=== PATIENT | male | born 2000 | race American Indian/Alaskan Native ===

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

== ENCOUNTER 2021-05-30 02:14 | Inpatient (IN) | payer MEDICAID, SELFPAY ==
[2021-05-30 04:04] LABS: Basophils % (Auto) 0.1 % (0.0-1.8); Hematocrit 43.1 % (35.5-45.6); Hemoglobin 14.9 gm/dl (11.8-15.2); Lymphocytes # (Auto) 0.6 K/mm3 (1.2-5.4); Lymphocytes % (Auto) 12.9 % (13.4-35.0); Mean Corpuscular HGB Conc 35 % (32-34); Mean Corpuscular Volume 89 fl (84-94); Monocytes # (Auto) 0.4 K/mm3 (0.0-0.8); Monocytes % (Auto) 8.7 % (0.0-7.3); Platelet Count 174 K/mm3 (140-440); Red Blood Count 4.83 M/mm3 (3.65-5.03); Red Cell Distribution Width 12.9 % (13.2-15.2)
[2021-05-30 04:29] LABS: Alanine Aminotransferase 13 units/L (7-56); Albumin 4.1 g/dL (3.9-5); BUN/Creatinine Ratio 15; Blood Urea Nitrogen 17 mg/dL (9-20); Hemolysis Index 8
[2021-05-30 06:42] LABS: Bacteria,Urine 1+ /HPF (Negative); Bilirubin,Urine NEG (Negative); Blood,Urine NEG (Negative); Color,Urine Yellow (Yellow); Mucus,Urine FEW /HPF; Urobilinogen,Urine < 2.0 mg/dL (<2.0)
[2021-05-30] MEDS ORDERED: ACETAMINOPHEN 500 MG TAB PO ONE (09:21)
[2021-05-30] MEDS ORDERED: KETOROLAC 30 MG/1 ML INJ IV ONE (09:21)
[2021-05-30] MEDS ORDERED: SODIUM CHLORIDE 0.9% 1000 ML 1,000 ML IV ONE (09:21)
--- NOTE | 2021-05-30 09:40 | Emergency Department Report ---
ED N/V/D HPI - General Chief complaint: Abdominal Pain Stated complaint: VOMITING/HEADACHES X4DAYS/SORE THROAT/NAUSEA Time Seen by Provider: 05/30/21 09:12 Source: patient Mode of arrival: Ambulatory Limitations: No Limitations - History of Present Illness Initial comments: 20-year-old male, no past medical history, presents to ED with flu-like illness x1 week. Patient is unvaccinated against COVID-19. Patient reports 1 week history of fever, cough, vomiting, abdominal pain, muscle aches. He denies any loss of smell or taste. Patient seen and evaluated in the acute waiting room secondary to no ED beds available due to COVID-19 pandemic and nursing shortage. MD complaint: nausea, vomiting, abdominal pain -: week(s) (1) Associated Abdominal Pain: Yes Location: diffuse Severity: moderate Quality: cramping Consistency: constant Improves with: none Worsens with: none, eating Associated Symptoms: myalgias, cough, fever/chills, nausea/vomiting, shortness of breath, weakness - Related Data Home Medications Medication Instructions Recorded Confirmed Last Taken No Known Home Medications [No 06/22/17 06/22/17 Unknown Reported Home Medications] Allergies Allergy/AdvReac Type Severity Reaction Status Date / Time No Known Allergies Allergy Verified 06/27/17 06:34 ED Review of Systems ROS: Stated complaint: VOMITING/HEADACHES X4DAYS/SORE THROAT/NAUSEA Other details as noted in HPI Comment: All other systems reviewed and negative Constitutional: chills, fever ENT: other (Denies loss of smell or taste) Respiratory: cough, shortness of breath Gastrointestinal: abdominal pain, nausea, vomiting Musculoskeletal: myalgia Neurological: headache ED Past Medical Hx - Past Medical History Previous Medical History?: No Hx HIV: No - Surgical History Past Surgical History?: Yes Additional Surgical History: left ear surgery - Social History Smoking Status: Never Smoker - Medications Home Medications: Home Medications Medication Instructions Recorded Confirmed Last Taken Type No Known Home Medications [No 06/22/17 06/22/17 Unknown History Reported Home Medications] ED Physical Exam - General Limitations: No Limitations General appearance: alert, in no apparent distress - Head Head exam: Present: atraumatic, normocephalic - Eye Eye exam: Present: normal appearance, EOMI - ENT ENT exam: Present: mucous membranes moist - Neck Neck exam: Present: normal inspection - Respiratory Respiratory exam: Present: normal lung sounds bilaterally, respiratory distress, other (tachypnea present) - Cardiovascular Cardiovascular Exam: Present: normal rhythm, tachycardia - GI/Abdominal GI/Abdominal exam: Present: soft. Absent: distended, tenderness - Extremities Exam Extremities exam: Present: normal inspection - Neurological Exam Neurological exam: Present: alert, oriented X3 - Psychiatric Psychiatric exam: Present: normal affect, normal mood - Skin Skin exam: Present: warm, dry, intact, normal color ED Course Vital Signs 05/30/21 05/30/21 05/30/21 03:04 09:05 09:57 Temperature 98.4 F 102.0 F H Pulse Rate 114 H 111 H Respiratory 18 18 20 Rate Blood Pressure 111/65 114/63 Blood Pressure [Right] O2 Sat by Pulse 97 98 Oximetry 05/30/21 05/30/21 05/30/21 11:45 14:22 18:30 Temperature 98.8 F Pulse Rate 87 64 Respiratory 20 20 18 Rate Blood Pressure Blood Pressure 117/59 98/64 [Right] O2 Sat by Pulse 100 94 97 Oximetry 05/30/21 05/30/21 05/30/21 18:34 18:45 19:01 Temperature Pulse Rate 66 95 H 86 Respiratory 20 21 Rate Blood Pressure 90/36 90/36 106/68 Blood Pressure [Right] O2 Sat by Pulse 100 87 97 Oximetry 05/30/21 05/30/21 05/30/21 19:15 19:20 19:30 Temperature 97.6 F Pulse Rate 69 75 Respiratory 24 18 12 Rate Blood Pressure 90/36 90/36 Blood Pressure [Right] O2 Sat by Pulse 100 97 100 Oximetry 05/30/21 05/30/21 05/30/21 19:45 20:01 21:01 Temperature Pulse Rate 80 76 73 Respiratory 22 24 26 H Rate Blood Pressure 118/70 103/46 103/54 Blood Pressure [Right] O2 Sat by Pulse 100 100 100 Oximetry 05/30/21 05/30/21 05/30/21 21:23 21:31 21:45 Temperature Pulse Rate 81 67 Respiratory 14 15 Rate Blood Pressure 103/54 103/54 103/54 Blood Pressure [Right] O2 Sat by Pulse 100 96 100 Oximetry 05/30/21 05/30/21 05/30/21 22:01 22:15 22:31 Temperature Pulse Rate 67 64 66 Respiratory 21 29 H 25 H Rate Blood Pressure 115/78 103/54 116/73 Blood Pressure [Right] O2 Sat by Pulse 100 99 100 Oximetry 05/30/21 05/30/21 05/30/21 22:45 23:01 23:15 Temperature Pulse Rate 69 66 67 Respiratory 24 Rate Blood Pressure 116/73 110/66 110/66 Blood Pressure [Right] O2 Sat by Pulse 100 100 100 Oximetry 05/30/21 05/30/21 05/31/21 23:31 23:45 00:01 Temperature Pulse Rate 72 63 64 Respiratory 18 24 Rate Blood Pressure 116/68 116/68 112/69 Blood Pressure [Right] O2 Sat by Pulse 100 100 97 Oximetry 05/31/21 05/31/21 05/31/21 00:15 00:31 00:45 Temperature Pulse Rate 75 67 73 Respiratory 24 23 Rate Blood Pressure 112/69 119/76 119/76 Blood Pressure [Right] O2 Sat by Pulse 99 100 100 Oximetry 05/31/21 05/31/21 05/31/21 01:01 01:15 01:31 Temperature Pulse Rate 71 71 68 Respiratory 12 Rate Blood Pressure 107/63 107/63 112/67 Blood Pressure [Right] O2 Sat by Pulse 100 99 100 Oximetry 05/31/21 05/31/21 05/31/21 01:45 02:01 02:15 Temperature Pulse Rate 65 66 71 Respiratory 24 Rate Blood Pressure 112/67 130/83 130/83 Blood Pressure [Right] O2 Sat by Pulse 97 100 99 Oximetry 05/31/21 05/31/21 05/31/21 02:45 03:01 03:15 Temperature Pulse Rate 66 67 74 Respiratory 14 Rate Blood Pressure 117/79 123/77 123/77 Blood Pressure [Right] O2 Sat by Pulse 100 100 100 Oximetry 05/31/21 05/31/21 05/31/21 03:31 03:45 04:01 Temperature Pulse Rate 65 67 71 Respiratory 25 H 25 H Rate Blood Pressure 127/77 127/77 127/96 Blood Pressure [Right] O2 Sat by Pulse 100 100 99 Oximetry 05/31/21 05/31/21 05/31/21 04:15 04:31 04:45 Temperature Pulse Rate 69 70 66 Respiratory Rate Blood Pressure 127/96 116/72 116/72 Blood Pressure [Right] O2 Sat by Pulse 100 100 100 Oximetry 05/31/21 05/31/21 05/31/21 05:01 05:31 05:45 Temperature Pulse Rate 70 69 70 Respiratory Rate Blood Pressure 116/68 103/61 103/61 Blood Pressure [Right] O2 Sat by Pulse 100 99 98 Oximetry 05/31/21 05/31/21 05/31/21 06:01 06:15 06:31 Temperature Pulse Rate 72 71 72 Respiratory 14 Rate Blood Pressure 111/67 111/67 105/65 Blood Pressure [Right] O2 Sat by Pulse 98 98 99 Oximetry 05/31/21 05/31/21 05/31/21 06:45 07:01 07:15 Temperature Pulse Rate 69 71 Respiratory 25 H 31 H Rate Blood Pressure 105/65 105/57 105/57 Blood Pressure [Right] O2 Sat by Pulse 100 100 98 Oximetry 05/31/21 07:31 Temperature Pulse Rate 72 Respiratory 29 H Rate Blood Pressure 99/55 Blood Pressure [Right] O2 Sat by Pulse 100 Oximetry - Reevaluation(s) Reevaluation #1: 05/30/21 10:05 I ambulated patient myself and his O2 sats dropped to 85% on room air, pt also became lightheaded and tachycardic into the 120s. Reevaluation #2: 05/30/21 11:08 Pt tachypneic into the 30s. Will place on 2L O2 NC. ED Medical Decision Making - Lab Data Result diagrams: 05/30/21 03:06 05/30/21 10:11 - Radiology Data Radiology results: report reviewed, image reviewed - Medical Decision Making 20-year-old male presents to ED with flu-like illness. Patient tachycardic and febrile. Chest x-ray shows pneumonia. At rest, O2 sats are normal, however with ambulation, O2 sats dropped into the 80s. Patient is tachypneic. He was placed on 2 L O2. Covid markers have been sent. Patient is unvaccinated. Blood cultures drawn. Patient given Rocephin, azithromycin, and Decadron. Patient will be admitted by hospitalist for further management. - Differential Diagnosis Viral illness, COVID-19 Critical Care Time: Yes Critical care time in (mins) excluding proc time.: 35 Critical care attestation.: If time is entered above; I have spent that time in minutes in the direct care of this critically ill patient, excluding procedure time. Critical Care Time: 35 min ED Disposition Clinical Impression: Pneumonia, Suspected COVID-19 virus infection, Acute respiratory failure with hypoxia, Sepsis Disposition: 09 ADMITTED INPATIENT Is pt being admited?: Yes Condition: Stable Time of Disposition: 10:16
--- NOTE | 2021-05-30 10:02 | XRay Report ---
CHEST 2 VIEWS INDICATION / CLINICAL INFORMATION: cough. COMPARISON: None available. FINDINGS: SUPPORT DEVICES: None. HEART / MEDIASTINUM: No significant abnormality. LUNGS / PLEURA: Mild streaky parenchymal disease right lower lung field worrisome for early pneumonia . No pneumothorax. ADDITIONAL FINDINGS: No significant additional findings. IMPRESSION: 1. Probable early right lower lobe pneumonia Signer Name: Silver Rebolledo MD Signed: 05/30/2021 9:58 AM Workstation Name: [id number]
[2021-05-30] MEDS ORDERED: DEXAMETHASONE 4 MG TAB PO ONE (10:06)
[2021-05-30] MEDS ORDERED: cefTRIAXone/NS 1 GM/50 ML 1 GM/50 ML BAG IV ONE (10:06)
[2021-05-30] MEDS ORDERED: AZITHROMYCIN 250 MG TAB PO ONE (10:06)
--- NOTE | 2021-05-30 10:30 | History and Physical Report ---
History of Present Illness Date of examination: 05/30/21 Date of admission: 05/30/2021 Chief complaint: Nausea vomiting ,abdominal Pain, headache and fever last 4 days Patient is not vaccinated History of present illness: 20-year-old male patient with no significant past medical history, not on any medications, presented to the emergency room with nausea vomiting and upper respiratory symptoms for the last 1 week. Patient mainly has flulike symptoms, patient is unvaccinated for COVID-19 Patient also gives history of intermittent fevers for the last 1 week, occas ional cough productive headache and dizziness and generalized body aches Initial work-up in the ED findings consistent with right upper lobe pneumonia on chest x-ray, febrile with T-max of 102 F this morning And urinalysis consistent with UTI. Patient denies any sick contacts with COVID-19 patients Patient also complains of mild intermittent chest pain with nausea Denies any alcohol or recreational drug intake Past History Past Medical History: No medical history, other (Not on any medications) Past Surgical History: Other (Inner ear surgery when he was an infant. Keloid earlobe surgery) Social history: denies: smoking, alcohol abuse, prescription drug abuse Family history: hypertension Medications and Allergies Allergies Allergy/AdvReac Type Severity Reaction Status Date / Time No Known Allergies Allergy Verified 06/27/17 06:34 Home Medications Medication Instructions Recorded Confirmed Last Taken Type No Known Home Medications [No 06/22/17 06/22/17 Unknown History Reported Home Medications] Active Meds: Active Medications Ceftriaxone Sodium (Rocephin/Ns 1 Gm/50 Ml) 1 gm in 50 mls @ 100 mls/hr IV ONCE ONE; Protocol Stop: 05/30/21 10:35 Review of Systems Constitutional: fever, chills, fatigue, weakness Ears, nose, mouth and throat: nasal congestion, nasal discharge, sinus pressure Cardiovascular: chest pain, shortness of breath, no orthopnea, no palpitations, no rapid/irregular heart beat, no edema Respiratory: cough with sputum, shortness of breath, no hemoptysis Gastrointestinal: nausea, no abdominal pain, no vomiting Genitourinary Male: no dysuria, no hematuria Musculoskeletal: no myalgias, no arthritis Integumentary: no rash, no lesions Neurological: weakness, no parathesias, no numbness Psychiatric: no anxiety, no depression Endocrine: no cold intolerance, no heat intolerance, no polydipsia, no polyuria Hematologic/Lymphatic: no easy bruising, no easy bleeding Allergic/Immunologic: no urticaria, no allergic rhinitis Exam - Constitutional Vitals: Temp Pulse Resp BP Pulse Ox 102.0 F H 111 H 20 114/63 98 05/30/21 09:05 05/30/21 09:05 05/30/21 09:57 05/30/21 09:05 05/30/21 09:05 General appearance: Present: severe distress (Due to fever), well-nourished - EENT Eyes: Present: PERRL, EOM intact - Neck Neck: Present: supple, normal ROM - Respiratory Respiratory effort: normal Respiratory: bilateral: diminished, rhonchi, negative: rales, wheezing - Cardiovascular Rhythm: regular Heart Sounds: Present: S1 & S2 - Extremities Extremities: no ischemia, No edema - Abdominal General gastrointestinal: Present: soft, non-tender, non-distended, normal bowel sounds - Integumentary Integumentary: Present: clear, warm - Musculoskeletal Musculoskeletal: strength equal bilaterally - Psychiatric Psychiatric: appropriate mood/affect, cooperative - Neurologic Neurologic: moves all extremities Results - Labs CBC & Chem 7: 05/30/21 03:06 05/30/21 10:11 Labs: Abnormal lab results 05/30/21 05/30/21 05/30/21 Range/Units 03:06 03:06 05:18 MCHC 35 H (32-34) % RDW 12.9 L (13.2-15.2) % Lymph % (Auto) 12.9 L (13.4-35.0) % [place] % (Auto) 8.7 H (0.0-7.3) % Lymph # (Auto) 0.6 L (1.2-5.4) K/mm3 Seg Neutrophils % 78.3 H (40.0-70.0) % Sodium 134 L (137-145) mmol/L Chloride 96.4 L (98-107) mmol/L Urine WBC (Auto) 18.0 H (0.0-6.0) /HPF Assessment and Plan - Patient Problems (1) Febrile illness, acute Current Visit: Yes Status: Acute Plan to address problem: Probably viral in origin, possible COVID-19 Patient also has UTI per UA, treat the underlying cause Antipyretics, already on empiric antibiotics Rocephin and Zithromax (2) Person under investigation for COVID-19 Current Visit: Yes Status: Acute Plan to address problem: High suspicion for night COVID-19 Contact and droplet isolation Tam PCR test is ordered Check a set of inflammatory markers ID consult if needed (3) Acute respiratory failure with hypoxia Current Visit: Yes Status: Acute Plan to address problem: Probably secondary to pneumonia, possible COVID-19 Oxygen titrate O2 sats more than 90%, BiPAP if needed Home O2 evaluation, supportive care Pulmonary consult if needed (4) Pneumonia Current Visit: Yes Status: Acute Plan to address problem: Empiric antibiotics Rocephin and Zithromax Cultures, IV fluids and supportive care (5) Urinary tract infection Current Visit: Yes Status: Acute Plan to address problem: Present on admission, continue empiric Rocephin Follow cultures, IV fluids (6) Hyponatremia Current Visit: Yes Status: Acute Plan to address problem: Mild hyponatremia, treat with gentle hydration with normal saline Closely monitor electrolytes (7) DVT prophylaxis Current Visit: Yes Status: Acute Plan to address problem: Subcu Lovenox Closely monitor patient and adjust management as needed plan of care will be discussed with the patient and his nurse Continue isolation precautions, plenty oral fluids Follow tam PCR test I spent total 60 minutes coordinating this admission
[2021-05-30] MEDS ORDERED: ONDANSETRON 4 MG/2 ML INJ IV PRN (10:37)
[2021-05-30 11:15] LABS: C-Reactive Protein 2.8 mg/dL (0.00-1.30)
[2021-05-30] MEDS: PANTOPRAZOLE 40 MG INJ IV SCH (13:36)
[2021-05-30] MEDS: cefTRIAXone/NS 2 GM/100 ML 2 GM/100 ML BAG IV SCH (13:41)
[2021-05-30] MEDS: AZITHROMYCIN/NS 500 MG/250 ML 500 MG/250 ML BAG IV SCH (13:41)
[2021-05-30] MEDS ORDERED: MORPHINE 2 MG/1 ML INJ IV PRN (18:29)
[2021-05-30] MEDS ORDERED: MELATONIN 5 MG TAB PO PRN (18:47)
[2021-05-30] MEDS ORDERED: KETOROLAC 30 MG/1 ML INJ IV PRN (18:48)
--- NOTE | 2021-05-30 21:43 | Cat Scan Report ---
CTA CHEST WITH IV CONTRAST INDICATION: Possible Covid / elevated D-dimer / rule out PE. TECHNIQUE: Axial CT images were obtained through the chest after injection of IV contrast. 3 plane MIP reconstru ctions were produced. All CT scans at this location are performed using CT dose reduction for ALARA b y means of automated exposure control. COMPARISON: None available. FINDINGS: PULMONARY ARTERIES: No pulmonary emboli. THORACIC AORTA: No acute abnormality. HEART: Normal. CORONARY ARTERIES: No significant calcification. PLEURA: No pleural effusion. No pneumothorax. LYMPH NODES: No significant adenopathy. LUNGS: Mild to moderate multifocal bilateral patchy groundglass parenchymal disease characteristic fo r Covid pneumonia ADDITIONAL FINDINGS: None. UPPER ABDOMEN: No acute findings. SKELETAL STRUCTURES: No significant osseous abnormality. IMPRESSION: 1. No CT evidence for pulmonary embolism. 2. Bilateral Covid pneumonia. Signer Name: Silver Rebolledo MD Signed: 05/30/2021 9:38 PM Workstation Name: [id number]
[2021-05-30] MEDS ORDERED: ZOLPIDEM 5 MG TAB PO PRN (22:00)
[2021-05-31 00:22] LABS: Amphetamine Screen,Urine PRESUMPTIVE NEGATIVE; Benzodiazepines Screen,Urine PRESUMPTIVE NEGATIVE; Cannabinoid Screen,Urine PRESUMPTIVE NEGATIVE; Cocaine Screen,Urine PRESUMPTIVE NEGATIVE; Methadone Screen,Urine PRESUMPTIVE NEGATIVE; Opiate Screen,Urine PRESUMPTIVE NEGATIVE
[2021-05-31] MEDS: AZITHROMYCIN/NS 500 MG/250 ML 500 MG/250 ML BAG IV SCH (10:27)
[2021-05-31] MEDS: PANTOPRAZOLE 40 MG INJ IV SCH (10:27)
[2021-05-31] MEDS: cefTRIAXone/NS 2 GM/100 ML 2 GM/100 ML BAG IV SCH (11:48)
--- NOTE | 2021-05-31 13:04 | Progress Note ---
Assessment and Plan Assessment and plan: -- Febrile illness, acute Current Visit: Yes Status: Acute Plan to address problem: Probably viral in origin, possible COVID-19 Patient also has UTI per UA, treat the underlying cause Antipyretics, already on empiric antibiotics Rocephin and Zithromax -- COVID-19 infection Current Visit: Yes Status: Acute Plan to address problem: Contact and droplet isolation Tam PCR test is positive Patient saturates room air No indication for steroid/remdesivir O2 evaluation Inflammatory markers, Proning -- Acute respiratory failure with hypoxia Current Visit: Yes Status: Acute Patient currently on room air Evaluate for oxygen --pneumonia/atypical Current Visit: Yes Status: Acute Plan to address problem: Empiric antibiotics Rocephin and Zithromax Cultures, IV fluids and supportive care Check procalcitonin, if normal will DC antibiotics --Urinary tract infection Current Visit: Yes Status: Acute Plan to address problem: Present on admission, continue empiric Rocephin Follow cultures, IV fluids -- Hyponatremia Current Visit: Yes Status: Acute Plan to address problem: Mild hyponatremia, treat with gentle hydration with normal saline Closely monitor electrolytes --DVT prophylaxis Current Visit: Yes Status: Acute Plan to address problem: Subcu Lovenox Monitor monitor patient and adjust management as needed plan of care will be discussed with the patient and his nurse Continue current management History Interval history: I have seen and examined the patient at the bedside Patient's chart and medications reviewed Patient is positive COVID-19 Isolation precautions PPE protocols observed Patient complains of shortness of breath and cough Hospitalist Physical - Constitutional Vitals: Temp Pulse Resp BP Pulse Ox 97.6 F 72 29 H 99/55 100 05/30/21 19:20 05/31/21 07:31 05/31/21 07:31 05/31/21 07:31 05/31/21 07:31 General appearance: Present: mild distress, well-nourished - EENT Eyes: Present: PERRL, EOM intact - Neck Neck: Present: supple, normal ROM - Respiratory Respiratory effort: normal Respiratory: bilateral: diminished, rhonchi, negative: rales, wheezing - Cardiovascular Rhythm: regular Heart Sounds: Present: S1 & S2 - Extremities Extremities: no ischemia, No edema - Abdominal General gastrointestinal: soft, non-tender, non-distended, normal bowel sounds - Integumentary Integumentary: Present: clear, warm - Psychiatric Psychiatric: appropriate mood/affect, cooperative - Neurologic Neurologic: CNII-XII intact, moves all extremities HEART Score - HEART Score Troponin: Troponin T < 0.010 ng/mL (0.00-0.029) 05/30/21 18:42 Results - Labs CBC & Chem 7: 05/30/21 03:06 05/30/21 10:11 Labs: Laboratory Last Values WBC 4.6 K/mm3 (4.5-11.0) 05/30/21 03:06 RBC 4.83 M/mm3 (3.65-5.03) 05/30/21 03:06 Hgb 14.9 gm/dl (11.8-15.2) 05/30/21 03:06 Hct 43.1 % (35.5-45.6) 05/30/21 03:06 MCV 89 fl (84-94) 05/30/21 03:06 MCH 31 pg (28-32) 05/30/21 03:06 MCHC 35 % (32-34) H 05/30/21 03:06 RDW 12.9 % (13.2-15.2) L 05/30/21 03:06 Plt Count 174 K/mm3 (140-440) 05/30/21 03:06 Lymph % (Auto) 12.9 % (13.4-35.0) L 05/30/21 03:06 [place] % (Auto) 8.7 % (0.0-7.3) H 05/30/21 03:06 Eos % (Auto) 0.0 % (0.0-4.3) 05/30/21 03:06 Baso % (Auto) 0.1 % (0.0-1.8) 05/30/21 03:06 Lymph # (Auto) 0.6 K/mm3 (1.2-5.4) L 05/30/21 03:06 [place] # (Auto) 0.4 K/mm3 (0.0-0.8) 05/30/21 03:06 Eos # (Auto) 0.0 K/mm3 (0.0-0.4) 05/30/21 03:06 Baso # (Auto) 0.0 K/mm3 (0.0-0.1) 05/30/21 03:06 Seg Neutrophils % 78.3 % (40.0-70.0) H 05/30/21 03:06 Seg Neutrophils # 3.6 K/mm3 (1.8-7.7) 05/30/21 03:06 D-Dimer 530.84 ng/mlDDU (0-234) H 05/30/21 10:11 Sodium 134 mmol/L (137-145) L 05/30/21 03:06 Potassium 4.0 mmol/L (3.6-5.0) 05/30/21 03:06 Chloride 96.4 mmol/L (98-107) L 05/30/21 03:06 Carbon Dioxide 25 mmol/L (22-30) 05/30/21 03:06 Anion Gap 17 mmol/L 05/30/21 03:06 BUN 17 mg/dL (9-20) 05/30/21 03:06 Creatinine 1.1 mg/dL (0.8-1.3) 05/30/21 03:06 Estimated GFR > 60 ml/min 05/30/21 03:06 BUN/Creatinine Ratio 15 % 05/30/21 03:06 Glucose 128 mg/dL (75-100) H 05/30/21 10:11 Calcium 9.0 mg/dL (8.4-10.2) 05/30/21 03:06 Ferritin 255.1 ng/mL (30.0-300.0) 05/30/21 10:11 Total Bilirubin 0.70 mg/dL (0.1-1.2) 05/30/21 03:06 AST 35 units/L (5-40) 05/30/21 03:06 ALT 13 units/L (7-56) 05/30/21 03:06 Alkaline Phosphatase 54 units/L (35-129) 05/30/21 03:06 Lactate Dehydrogenase 301 units/L (91-180) H 05/30/21 10:11 Troponin T < 0.010 ng/mL (0.00-0.029) 05/30/21 18:42 C-Reactive Protein 2.80 mg/dL (0.00-1.30) H 05/30/21 10:11 Total Protein 7.7 g/dL (6.3-8.2) 05/30/21 03:06 Albumin 4.1 g/dL (3.9-5) 05/30/21 03:06 Albumin/Globulin Ratio 1.1 % 05/30/21 03:06 Lipase 15 units/L (13-60) 05/30/21 07:50 Procalcitonin 0.12 ng/mL (<0.15) 05/30/21 10:11 Urine Color Yellow (Yellow) 05/30/21 05:18 Urine Turbidity Slightly-cloudy (Clear) 05/30/21 05:18 Urine pH 5.0 (5.0-7.0) 05/30/21 05:18 Ur Specific [place] 1.019 (1.003-1.030) 05/30/21 05:18 Urine Protein 100 mg/dl mg/dL (Negative) 05/30/21 05:18 Urine Glucose (UA) 50 mg/dL (Negative) 05/30/21 05:18 Urine Ketones Neg mg/dL (Negative) 05/30/21 05:18 Urine Blood Neg (Negative) 05/30/21 05:18 Urine Nitrite Neg (Negative) 05/30/21 05:18 Urine Bilirubin Neg (Negative) 05/30/21 05:18 Urine Urobilinogen < 2.0 mg/dL (<2.0) 05/30/21 05:18 Ur Leukocyte Esterase Neg (Negative) 05/30/21 05:18 Urine WBC (Auto) 18.0 /HPF (0.0-6.0) H 05/30/21 05:18 Urine RBC (Auto) 2.0 /HPF (0.0-6.0) 05/30/21 05:18 U Epithel Cells (Auto) 1.0 /HPF (0-13.0) 05/30/21 05:18 Urine Bacteria (Auto) 1+ /HPF (Negative) 05/30/21 05:18 Urine Mucus Few /HPF 05/30/21 05:18 Urine Opiates Screen Presumptive negative 05/30/21 Unknown Urine Methadone Screen Presumptive negative 05/30/21 Unknown Ur Barbiturates Screen Presumptive negative 05/30/21 Unknown Ur Phencyclidine Scrn Presumptive negative 05/30/21 Unknown Ur Amphetamines Screen Presumptive negative 05/30/21 Unknown U Benzodiazepines Scrn Presumptive negative 05/30/21 Unknown Urine Cocaine Screen Presumptive negative 05/30/21 Unknown U Marijuana (THC) Screen Presumptive negative 05/30/21 Unknown Drugs of Abuse Note Disclamer 05/30/21 Unknown Microbiology: Microbiology 05/30/21 10:11 Peripheral/Venous Blood Culture - Preliminary NO GROWTH AFTER 24 HOURS 05/30/21 10:11 Peripheral/Venous Blood Culture - Preliminary NO GROWTH AFTER 24 HOURS 05/30/21 05:18 Urine,Clean Catch Urine Culture - Preliminary NO GROWTH AFTER 24 HOURS Active Medications - Current Medications Current Medications: Generic Name Dose Route Start Last Admin Trade Name Freq PRN Reason Stop Dose Admin Acetaminophen 650 mg 05/30/21 10:35 Acetaminophen 325 Mg Tab PO Q4H PRN Pain, Mild (1-3) Azithromycin 500 mg in 250 mls @ 250 mls/hr 05/30/21 11:00 05/31/21 10:27 Zithromax/Ns IV 06/03/21 10:59 250 mls/hr Q24HR CARLO Administration Ceftriaxone Sodium 2 gm in 100 mls @ 200 mls/hr 05/30/21 11:00 05/31/21 11:48 Rocephin/Ns 2 Gm/100 Ml IV 06/03/21 11:29 200 mls/hr Q24H CARLO Administration Protocol Sodium Chloride 1,000 mls @ 100 mls/hr 05/30/21 18:30 Nacl 0.9% 1000 Ml IV DIRECT CARLO Ketorolac Tromethamine 15 mg 05/30/21 18:48 Ketorolac 30 Mg/1 Ml Inj IV 06/04/21 18:47 Q6H PRN Pain, Mild (1-3) Melatonin 10 mg 05/30/21 18:47 Melatonin 5 Mg Tab PO QHS PRN Sleep Morphine Sulfate 2 mg 05/30/21 18:29 Morphine 2 Mg/1 Ml Inj IV ONCE PRN Chest Pain Ondansetron HCl 4 mg 05/30/21 10:37 Ondansetron 4 Mg/2 Ml Inj IV Q4H PRN Nausea And Vomiting Pantoprazole Sodium 40 mg 05/30/21 11:00 05/31/21 10:27 Pantoprazole 40 Mg Inj IV 40 mg QDAY CARLO Administration
[2021-05-31] MEDS: SODIUM CHLORIDE 0.9% 1000 ML 1,000 ML IV SCH (20:00)
[2021-06-01] MEDS: SODIUM CHLORIDE 0.9% 1000 ML 1,000 ML IV SCH ×2 (08:31→18:00)
[2021-06-01] MEDS: AZITHROMYCIN/NS 500 MG/250 ML 500 MG/250 ML BAG IV SCH (09:34)
[2021-06-01] MEDS: PANTOPRAZOLE 40 MG TAB PO SCH (09:35)
[2021-06-01] MEDS: cefTRIAXone/NS 2 GM/100 ML 2 GM/100 ML BAG IV SCH (10:58)
--- NOTE | 2021-06-01 16:29 | Progress Note ---
Assessment and Plan Assessment and plan: -- COVID-19 infection Current Visit: Yes Status: Acute Contact and droplet isolation Tam PCR test is positive Patient on room air O2 sats> 96 No indication for steroid/remdesivir Home O2 evaluation Inflammatory markers, Proning -- Febrile illness, acute Current Visit: Yes Status: Acute Due to COVID-19, afebrile now Possible UTI, possible pneumonia Continue antibiotics Follow cultures --pneumonia/atypical Current Visit: Yes Status: Acute Empiric antibiotics Rocephin and Zithromax Cultures, negative to date Procalcitonin normal, DC antibiotics --Urinary tract infection/on UA Current Visit: Yes Status: Acute Present on admission, on empiric Rocephin Urine cultures negative more than 48 hours DC antibiotic -- Hyponatremia Current Visit: Yes Status: Acute Mild hyponatremia, treat with gentle hydration with normal saline Closely monitor electrolytes --DVT prophylaxis Current Visit: Yes Status: Acute Subcu Lovenox Will monitor monitor closely and adjust management as needed plan of care will be discussed with the patient and his nurse Follow ID evaluation recommendation Possible discharge 1 to 2 days if stable 06/01/2021 I spoke with patient's grandmother at the bedside over the phone and discussed patient's condition, tests and reports Treatment plan, she had some questions answered all of them History Interval history: I have seen and examined the patient at the bedside Patient's chart and medications reviewed No new events reported by nursing Patient feels slightly better has some cough Vital signs noted Patient is saturating well on room air> 96% Hospitalist Physical - Constitutional Vitals: Temp Pulse Resp BP Pulse Ox 97.6 F 80 18 120/66 99 05/31/21 20:00 06/01/21 06:46 06/01/21 06:16 06/01/21 06:46 06/01/21 06:46 General appearance: Present: mild distress, well-nourished - EENT Eyes: Present: PERRL, EOM intact - Neck Neck: Present: supple, normal ROM - Respiratory Respiratory effort: normal Respiratory: bilateral: diminished, rhonchi, negative: rales, wheezing - Cardiovascular Rhythm: regular Heart Sounds: Present: S1 & S2 - Extremities Extremities: no ischemia, No edema - Abdominal General gastrointestinal: soft, non-tender, non-distended, normal bowel sounds - Integumentary Integumentary: Present: clear, warm - Psychiatric Psychiatric: appropriate mood/affect, cooperative - Neurologic Neurologic: CNII-XII intact, moves all extremities HEART Score - HEART Score Troponin: Troponin T < 0.010 ng/mL (0.00-0.029) 05/30/21 18:42 Results - Labs CBC & Chem 7: 05/30/21 03:06 05/30/21 10:11 Labs: Laboratory Last Values WBC 4.6 K/mm3 (4.5-11.0) 05/30/21 03:06 RBC 4.83 M/mm3 (3.65-5.03) 05/30/21 03:06 Hgb 14.9 gm/dl (11.8-15.2) 05/30/21 03:06 Hct 43.1 % (35.5-45.6) 05/30/21 03:06 MCV 89 fl (84-94) 05/30/21 03:06 MCH 31 pg (28-32) 05/30/21 03:06 MCHC 35 % (32-34) H 05/30/21 03:06 RDW 12.9 % (13.2-15.2) L 05/30/21 03:06 Plt Count 174 K/mm3 (140-440) 05/30/21 03:06 Lymph % (Auto) 12.9 % (13.4-35.0) L 05/30/21 03:06 [place] % (Auto) 8.7 % (0.0-7.3) H 05/30/21 03:06 Eos % (Auto) 0.0 % (0.0-4.3) 05/30/21 03:06 Baso % (Auto) 0.1 % (0.0-1.8) 05/30/21 03:06 Lymph # (Auto) 0.6 K/mm3 (1.2-5.4) L 05/30/21 03:06 [place] # (Auto) 0.4 K/mm3 (0.0-0.8) 05/30/21 03:06 Eos # (Auto) 0.0 K/mm3 (0.0-0.4) 05/30/21 03:06 Baso # (Auto) 0.0 K/mm3 (0.0-0.1) 05/30/21 03:06 Seg Neutrophils % 78.3 % (40.0-70.0) H 05/30/21 03:06 Seg Neutrophils # 3.6 K/mm3 (1.8-7.7) 05/30/21 03:06 D-Dimer 530.84 ng/mlDDU (0-234) H 05/30/21 10:11 Sodium 134 mmol/L (137-145) L 05/30/21 03:06 Potassium 4.0 mmol/L (3.6-5.0) 05/30/21 03:06 Chloride 96.4 mmol/L (98-107) L 05/30/21 03:06 Carbon Dioxide 25 mmol/L (22-30) 05/30/21 03:06 Anion Gap 17 mmol/L 05/30/21 03:06 BUN 17 mg/dL (9-20) 05/30/21 03:06 Creatinine 1.1 mg/dL (0.8-1.3) 05/30/21 03:06 Estimated GFR > 60 ml/min 05/30/21 03:06 BUN/Creatinine Ratio 15 % 05/30/21 03:06 Glucose 128 mg/dL (75-100) H 05/30/21 10:11 Calcium 9.0 mg/dL (8.4-10.2) 05/30/21 03:06 Ferritin 255.1 ng/mL (30.0-300.0) 05/30/21 10:11 Total Bilirubin 0.70 mg/dL (0.1-1.2) 05/30/21 03:06 AST 35 units/L (5-40) 05/30/21 03:06 ALT 13 units/L (7-56) 05/30/21 03:06 Alkaline Phosphatase 54 units/L (35-129) 05/30/21 03:06 Lactate Dehydrogenase 301 units/L (91-180) H 05/30/21 10:11 Troponin T < 0.010 ng/mL (0.00-0.029) 05/30/21 18:42 C-Reactive Protein 2.80 mg/dL (0.00-1.30) H 05/30/21 10:11 Total Protein 7.7 g/dL (6.3-8.2) 05/30/21 03:06 Albumin 4.1 g/dL (3.9-5) 05/30/21 03:06 Albumin/Globulin Ratio 1.1 % 05/30/21 03:06 Lipase 15 units/L (13-60) 05/30/21 07:50 Procalcitonin 0.12 ng/mL (<0.15) 05/30/21 10:11 Urine Color Yellow (Yellow) 05/30/21 05:18 Urine Turbidity Slightly-cloudy (Clear) 05/30/21 05:18 Urine pH 5.0 (5.0-7.0) 05/30/21 05:18 Ur Specific [place] 1.019 (1.003-1.030) 05/30/21 05:18 Urine Protein 100 mg/dl mg/dL (Negative) 05/30/21 05:18 Urine Glucose (UA) 50 mg/dL (Negative) 05/30/21 05:18 Urine Ketones Neg mg/dL (Negative) 05/30/21 05:18 Urine Blood Neg (Negative) 05/30/21 05:18 Urine Nitrite Neg (Negative) 05/30/21 05:18 Urine Bilirubin Neg (Negative) 05/30/21 05:18 Urine Urobilinogen < 2.0 mg/dL (<2.0) 05/30/21 05:18 Ur Leukocyte Esterase Neg (Negative) 05/30/21 05:18 Urine WBC (Auto) 18.0 /HPF (0.0-6.0) H 05/30/21 05:18 Urine RBC (Auto) 2.0 /HPF (0.0-6.0) 05/30/21 05:18 U Epithel Cells (Auto) 1.0 /HPF (0-13.0) 05/30/21 05:18 Urine Bacteria (Auto) 1+ /HPF (Negative) 05/30/21 05:18 Urine Mucus Few /HPF 05/30/21 05:18 Urine Opiates Screen Presumptive negative 05/30/21 Unknown Urine Methadone Screen Presumptive negative 05/30/21 Unknown Ur Barbiturates Screen Presumptive negative 05/30/21 Unknown Ur Phencyclidine Scrn Presumptive negative 05/30/21 Unknown Ur Amphetamines Screen Presumptive negative 05/30/21 Unknown U Benzodiazepines Scrn Presumptive negative 05/30/21 Unknown Urine Cocaine Screen Presumptive negative 05/30/21 Unknown U Marijuana (THC) Screen Presumptive negative 05/30/21 Unknown Drugs of Abuse Note Disclamer 05/30/21 Unknown Coronavirus (PCR) Positive (Negative) A 05/31/21 09:00 Microbiology: Microbiology 05/30/21 10:11 Peripheral/Venous Blood Culture - Preliminary NO GROWTH AFTER 48 HOURS 05/30/21 10:11 Peripheral/Venous Blood Culture - Preliminary NO GROWTH AFTER 48 HOURS 05/30/21 05:18 Urine,Clean Catch Urine Culture - Final NO GROWTH AFTER 48 HOURS Active Medications - Current Medications Current Medications: Generic Name Dose Route Start Last Admin Trade Name Freq PRN Reason Stop Dose Admin Acetaminophen 650 mg 05/30/21 10:35 Acetaminophen 325 Mg Tab PO Q4H PRN Pain, Mild (1-3) Azithromycin 500 mg in 250 mls @ 250 mls/hr 05/30/21 11:00 06/01/21 09:34 Zithromax/Ns IV 06/03/21 10:59 250 mls/hr Q24HR CARLO Administration Ceftriaxone Sodium 2 gm in 100 mls @ 200 mls/hr 05/30/21 11:00 06/01/21 10:58 Rocephin/Ns 2 Gm/100 Ml IV 06/03/21 11:29 200 mls/hr Q24H CARLO Administration Protocol Sodium Chloride 1,000 mls @ 100 mls/hr 05/30/21 18:30 06/01/21 08:31 Nacl 0.9% 1000 Ml IV 100 mls/hr DIRECT CARLO Administration Ketorolac Tromethamine 15 mg 05/30/21 18:48 Ketorolac 30 Mg/1 Ml Inj IV 06/04/21 18:47 Q6H PRN Pain, Mild (1-3) Melatonin 10 mg 05/30/21 18:47 Melatonin 5 Mg Tab PO QHS PRN Sleep Morphine Sulfate 2 mg 05/30/21 18:29 Morphine 2 Mg/1 Ml Inj IV ONCE PRN Chest Pain Ondansetron HCl 4 mg 05/30/21 10:37 Ondansetron 4 Mg/2 Ml Inj IV Q4H PRN Nausea And Vomiting Pantoprazole Sodium 40 mg 06/01/21 10:00 06/01/21 09:35 Pantoprazole 40 Mg Tab PO 40 mg QDAC CARLO Administration
[2021-06-01 19:41] LABS: C-Reactive Protein 5.9 mg/dL (0.00-1.30)
[2021-06-02] MEDS: ACETAMINOPHEN 325 MG TAB PO PRN (05:48)
[2021-06-02] MEDS: PANTOPRAZOLE 40 MG TAB PO SCH (07:43)
--- NOTE | 2021-06-02 08:51 | Electrocardiograph Report ---
[facility] Test Date: 2021-05-30 Test Time: 19:21:35 Pat Name: SHERON BOURGEOIS Department: Room: A378 1 Gender: M Ticketing Clerk: IRINEO : 2000 Requested By: MAGUE LANG Order Number: [id number] Reading MD: Nazario Simmons Measurements Intervals [place] Rate: 77 P: 52 [place]: 172 QRS: 21 QRSD: 85 T: -7 QT: 416 QTc: 472 Interpretive Statements Sinus rhythm Nonspecific T abnormalities, inferior leads Borderline ST elevation, lateral leads No previous ECG available for comparison Electronically Signed On 06-02-2021 8:50:54 EDT by Nazario Simmons
[2021-06-02] MEDS: AZITHROMYCIN/NS 500 MG/250 ML 500 MG/250 ML BAG IV SCH (09:38)
--- NOTE | 2021-06-02 09:53 | Progress Note ---
Assessment and Plan Assessment and plan: -- COVID-19 infection Current Visit: Yes Status: Acute Contact and droplet isolation Tam PCR test is positive Patient on room air O2 sats> 96 No indication for steroid/remdesivir Home O2 evaluation Inflammatory markers, Proning --Abnormal EKG/nonspecific ST-T changes in inferior leads; Current Visit: Yes Status: Acute Patient reports that last night when he went to the bathroom he had a little bit of chest pain which lasted for few seconds Associated with shortness of breath, after receiving oxygen 2 to 3 L patient felt better He reports that he had 4-5 episodes during the whole day Denies chest pain now -- Febrile illness, acute Current Visit: Yes Status: Acute Due to COVID-19, afebrile now Possible UTI, possible pneumonia Continue antibiotics Follow cultures --pneumonia/atypical Current Visit: Yes Status: Acute Empiric antibiotics Rocephin and Zithromax Cultures, negative to date Procalcitonin normal, DC antibiotics --Urinary tract infection/on UA Current Visit: Yes Status: Acute Present on admission, on empiric Rocephin Urine cultures negative more than 48 hours DC antibiotic -- Hyponatremia Current Visit: Yes Status: Acute Mild hyponatremia, treat with gentle hydration with normal saline Closely monitor electrolytes --DVT prophylaxis Current Visit: Yes Status: Acute Subcu Lovenox Will monitor monitor closely and adjust management as needed plan of care will be discussed with the patient and his nurse Follow ID evaluation recommendation Possible discharge 1 to 2 days if stable 06/01/2021 I spoke with patient's grandmother at the bedside over the phone and discussed patient's condition, tests and reports Treatment plan, she had some questions answered all of them 06/02/2021; Patient has nonspecific ST-T changes and chest pain Follow cardiology recommendations, May discharge home if stable and cleared by cardiology ID cleared for discharge, History Interval history: I have seen and examined the patient at the bedside Patient's chart and medications reviewed Patient reports that he had chest pain last night when he went to the bathroom And mild shortness of breath EKG was obtained shows nonspecific ST-T changes This morning patient denies any chest pain or shortness of breath Hospitalist Physical - Constitutional Vitals: Temp Pulse Resp BP Pulse Ox 100.3 F H 79 17 119/64 100 06/02/21 03:17 06/02/21 03:17 06/02/21 06:48 06/02/21 03:17 06/02/21 03:17 General appearance: Present: no acute distress, well-nourished - EENT Eyes: Present: PERRL, EOM intact - Neck Neck: Present: supple, normal ROM - Respiratory Respiratory effort: normal Respiratory: bilateral: diminished, negative: rales, rhonchi, wheezing - Cardiovascular Rhythm: regular Heart Sounds: Present: S1 & S2 - Extremities Extremities: no ischemia, No edema - Abdominal General gastrointestinal: soft, non-tender, non-distended, normal bowel sounds - Integumentary Integumentary: Present: clear, warm - Psychiatric Psychiatric: appropriate mood/affect, cooperative - Neurologic Neurologic: CNII-XII intact, moves all extremities HEART Score - HEART Score Troponin: Troponin T < 0.010 ng/mL (0.00-0.029) 05/30/21 18:42 Results - Labs CBC & Chem 7: 05/30/21 03:06 05/30/21 10:11 Labs: Laboratory Last Values WBC 4.6 K/mm3 (4.5-11.0) 05/30/21 03:06 RBC 4.83 M/mm3 (3.65-5.03) 05/30/21 03:06 Hgb 14.9 gm/dl (11.8-15.2) 05/30/21 03:06 Hct 43.1 % (35.5-45.6) 05/30/21 03:06 MCV 89 fl (84-94) 05/30/21 03:06 MCH 31 pg (28-32) 05/30/21 03:06 MCHC 35 % (32-34) H 05/30/21 03:06 RDW 12.9 % (13.2-15.2) L 05/30/21 03:06 Plt Count 174 K/mm3 (140-440) 05/30/21 03:06 Lymph % (Auto) 12.9 % (13.4-35.0) L 05/30/21 03:06 [place] % (Auto) 8.7 % (0.0-7.3) H 05/30/21 03:06 Eos % (Auto) 0.0 % (0.0-4.3) 05/30/21 03:06 Baso % (Auto) 0.1 % (0.0-1.8) 05/30/21 03:06 Lymph # (Auto) 0.6 K/mm3 (1.2-5.4) L 05/30/21 03:06 [place] # (Auto) 0.4 K/mm3 (0.0-0.8) 05/30/21 03:06 Eos # (Auto) 0.0 K/mm3 (0.0-0.4) 05/30/21 03:06 Baso # (Auto) 0.0 K/mm3 (0.0-0.1) 05/30/21 03:06 Seg Neutrophils % 78.3 % (40.0-70.0) H 05/30/21 03:06 Seg Neutrophils # 3.6 K/mm3 (1.8-7.7) 05/30/21 03:06 D-Dimer 416.61 ng/mlDDU (0-234) H 06/01/21 18:15 Sodium 134 mmol/L (137-145) L 05/30/21 03:06 Potassium 4.0 mmol/L (3.6-5.0) 05/30/21 03:06 Chloride 96.4 mmol/L (98-107) L 05/30/21 03:06 Carbon Dioxide 25 mmol/L (22-30) 05/30/21 03:06 Anion Gap 17 mmol/L 05/30/21 03:06 BUN 17 mg/dL (9-20) 05/30/21 03:06 Creatinine 1.1 mg/dL (0.8-1.3) 05/30/21 03:06 Estimated GFR > 60 ml/min 05/30/21 03:06 BUN/Creatinine Ratio 15 % 05/30/21 03:06 Glucose 128 mg/dL (75-100) H 05/30/21 10:11 Calcium 9.0 mg/dL (8.4-10.2) 05/30/21 03:06 Ferritin 322.1 ng/mL (30.0-300.0) H 06/01/21 18:15 Total Bilirubin 0.70 mg/dL (0.1-1.2) 05/30/21 03:06 AST 35 units/L (5-40) 05/30/21 03:06 ALT 13 units/L (7-56) 05/30/21 03:06 Alkaline Phosphatase 54 units/L (35-129) 05/30/21 03:06 Lactate Dehydrogenase 310 units/L (91-180) H 06/01/21 18:15 Troponin T < 0.010 ng/mL (0.00-0.029) 05/30/21 18:42 C-Reactive Protein 5.90 mg/dL (0.00-1.30) H 06/01/21 18:15 Total Protein 7.7 g/dL (6.3-8.2) 05/30/21 03:06 Albumin 4.1 g/dL (3.9-5) 05/30/21 03:06 Albumin/Globulin Ratio 1.1 % 05/30/21 03:06 Lipase 15 units/L (13-60) 05/30/21 07:50 Procalcitonin 0.12 ng/mL (<0.15) 05/30/21 10:11 Urine Color Yellow (Yellow) 05/30/21 05:18 Urine Turbidity Slightly-cloudy (Clear) 05/30/21 05:18 Urine pH 5.0 (5.0-7.0) 05/30/21 05:18 Ur Specific [place] 1.019 (1.003-1.030) 05/30/21 05:18 Urine Protein 100 mg/dl mg/dL (Negative) 05/30/21 05:18 Urine Glucose (UA) 50 mg/dL (Negative) 05/30/21 05:18 Urine Ketones Neg mg/dL (Negative) 05/30/21 05:18 Urine Blood Neg (Negative) 05/30/21 05:18 Urine Nitrite Neg (Negative) 05/30/21 05:18 Urine Bilirubin Neg (Negative) 05/30/21 05:18 Urine Urobilinogen < 2.0 mg/dL (<2.0) 05/30/21 05:18 Ur Leukocyte Esterase Neg (Negative) 05/30/21 05:18 Urine WBC (Auto) 18.0 /HPF (0.0-6.0) H 05/30/21 05:18 Urine RBC (Auto) 2.0 /HPF (0.0-6.0) 05/30/21 05:18 U Epithel Cells (Auto) 1.0 /HPF (0-13.0) 05/30/21 05:18 Urine Bacteria (Auto) 1+ /HPF (Negative) 05/30/21 05:18 Urine Mucus Few /HPF 05/30/21 05:18 Urine Opiates Screen Presumptive negative 05/30/21 Unknown Urine Methadone Screen Presumptive negative 05/30/21 Unknown Ur Barbiturates Screen Presumptive negative 05/30/21 Unknown Ur Phencyclidine Scrn Presumptive negative 05/30/21 Unknown Ur Amphetamines Screen Presumptive negative 05/30/21 Unknown U Benzodiazepines Scrn Presumptive negative 05/30/21 Unknown Urine Cocaine Screen Presumptive negative 05/30/21 Unknown U Marijuana (THC) Screen Presumptive negative 05/30/21 Unknown Drugs of Abuse Note Disclamer 05/30/21 Unknown Coronavirus (PCR) Positive (Negative) A 05/31/21 09:00 Microbiology: Microbiology 05/30/21 10:11 Peripheral/Venous Blood Culture - Preliminary NO GROWTH AFTER 48 HOURS 05/30/21 10:11 Peripheral/Venous Blood Culture - Preliminary NO GROWTH AFTER 48 HOURS 05/30/21 05:18 Urine,Clean Catch Urine Culture - Final NO GROWTH AFTER 48 HOURS Desouza/IV: Voiding Method Urinal Active Medications - Current Medications Current Medications: Generic Name Dose Route Start Last Admin Trade Name Freq PRN Reason Stop Dose Admin Acetaminophen 650 mg 05/30/21 10:35 06/02/21 05:48 Acetaminophen 325 Mg Tab PO 650 mg Q4H PRN Administration Pain, Mild (1-3) Azithromycin 500 mg in 250 mls @ 250 mls/hr 05/30/21 11:00 06/02/21 09:38 Zithromax/Ns IV 06/03/21 10:59 250 mls/hr Q24HR CARLO Administration Ceftriaxone Sodium 2 gm in 100 mls @ 200 mls/hr 05/30/21 11:00 06/01/21 10:58 Rocephin/Ns 2 Gm/100 Ml IV 06/03/21 11:29 200 mls/hr Q24H CARLO Administration Protocol Sodium Chloride 1,000 mls @ 100 mls/hr 05/30/21 18:30 06/01/21 18:00 Nacl 0.9% 1000 Ml IV 100 mls/hr DIRECT CARLO Administration Ketorolac Tromethamine 15 mg 05/30/21 18:48 Ketorolac 30 Mg/1 Ml Inj IV 06/04/21 18:47 Q6H PRN Pain, Mild (1-3) Melatonin 10 mg 05/30/21 18:47 06/01/21 21:58 Melatonin 5 Mg Tab PO 10 mg QHS PRN Administration Sleep Morphine Sulfate 2 mg 05/30/21 18:29 Morphine 2 Mg/1 Ml Inj IV ONCE PRN Chest Pain Ondansetron HCl 4 mg 05/30/21 10:37 Ondansetron 4 Mg/2 Ml Inj IV Q4H PRN Nausea And Vomiting Pantoprazole Sodium 40 mg 06/01/21 10:00 06/02/21 07:43 Pantoprazole 40 Mg Tab PO 40 mg QDAC CARLO Administration
--- NOTE | 2021-06-02 10:44 | Consultation ---
History of Present Illness - Reason for Consult Consult date: 06/02/21 - History of Present Illness 20-year-old man no known past medical history presented to the hospital complaining of nausea, vomiting, alert for symptoms. This began approximate 1 week prior to admission and has been worsening since onset. He was unvaccinated against Covid. He complains of associated fevers over this time with cough and headache. Febrile to 102 with a white count 4.6. Covid positive. Normal renal function. Low procalcitonin. Elevated inflammatory markers. Blood and urine cultures no growth so far. Currently on dexamethasone. Imaging personally reviewed: Chest CTA: No evidence of pulmonary embolism, bilateral COVID-19 pneumonia. Review of systems: Deferred to reduce to the risk of transmission of COVID-19 Past History Past Medical History: No medical history, other (Not on any medications) Past Surgical History: Other (Inner ear surgery when he was an infant. Keloid earlobe surgery) Social history: denies: smoking, alcohol abuse, prescription drug abuse Family history: hypertension Medications and Allergies Allergies Allergy/AdvReac Type Severity Reaction Status Date / Time No Known Allergies Allergy Verified 06/27/17 06:34 Home Medications Medication Instructions Recorded Confirmed Last Taken Type No Known Home Medications [No 06/22/17 06/22/17 Unknown History Reported Home Medications] Active Meds: Active Medications Acetaminophen (Acetaminophen 325 Mg Tab) 650 mg PO Q4H PRN PRN Reason: Pain, Mild (1-3) Last Admin: 06/02/21 05:48 Dose: 650 mg Documented by: Dexamethasone (Dexamethasone 4 Mg/Ml Vial) 6 mg IV DAILY CARLO Stop: 06/11/21 10:01 Sodium Chloride (Nacl 0.9% 1000 Ml) 1,000 mls @ 100 mls/hr IV DIRECT CARLO Last Admin: 06/01/21 18:00 Dose: 100 mls/hr Documented by: Ketorolac Tromethamine (Ketorolac 30 Mg/1 Ml Inj) 15 mg IV Q6H PRN PRN Reason: Pain, Mild (1-3) Stop: 06/04/21 18:47 Melatonin (Melatonin 5 Mg Tab) 10 mg PO QHS PRN PRN Reason: Sleep Last Admin: 06/01/21 21:58 Dose: 10 mg Documented by: Morphine Sulfate (Morphine 2 Mg/1 Ml Inj) 2 mg IV ONCE PRN PRN Reason: Chest Pain Ondansetron HCl (Ondansetron 4 Mg/2 Ml Inj) 4 mg IV Q4H PRN PRN Reason: Nausea And Vomiting Pantoprazole Sodium (Pantoprazole 40 Mg Tab) 40 mg PO QDAC [facility] Last Admin: 06/02/21 07:43 Dose: 40 mg Documented by: Physical Examination - Physical Exam Narrative exam: Physical exam deferred to reduce risk of transmission of COVID-19. Please refer to primary team's note. - Constitutional Vitals: Vital Signs Temp Pulse Resp BP Pulse Ox 100.3 F H 79 17 119/64 100 06/02/21 03:17 06/02/21 03:17 06/02/21 06:48 06/02/21 03:17 06/02/21 03:17 Temperature -Last 24 Hours Temperature 100.3 F Temperature 99.1 F Temperature 99.6 F Results - Labs CBC & Chem 7: 05/30/21 03:06 05/30/21 10:11 Labs: Abnormal lab results 06/01/21 06/01/21 06/01/21 Range/Units 18:15 18:15 18:15 D-Dimer 416.61 H (0-234) ng/mlDDU Ferritin 322.1 H (30.0-300.0) ng/mL Lactate Dehydrogenase 310 H (91-180) units/L C-Reactive Protein 5.90 H (0.00-1.30) mg/dL Assessment and Plan Cultures: Blood culture no growth Urine culture no growth COVID PCR: positive A/P: 20 yo M PMHx none presents with COVID. #COVID-19 pneumonia: without hypoxia. No need for therapy at the present time. #Pyuria: mild, no dysuria. Cultures negative. No need for antibiotics. Recs: -No need for steroids or remdesivir -No need for antibiotics -Anticoagulation per hospital protocol. Thank you for the consult, we will sign off. Please call with questions. MD [facility] O: [phone] F: [phone]
[2021-06-02] MEDS: dexAMETHasone 4 MG/ML VIAL IV SCH (11:04)
[2021-06-02] MEDS: SODIUM CHLORIDE 0.9% 1000 ML 1,000 ML IV SCH (11:06)
--- NOTE | 2021-06-02 11:10 | Consultation ---
<LETI COOK - Last Filed: 06/02/21 11:05> History of Present Illness Consult date: 06/02/21 Consult reason: other (abnormal ECG) History of present illness: This is a 20-year old M who presented 3 days ago with nausea, vomiting, and abdominal pain. Further evaluation revealed COVID 19 pneumonia. On presentation an ECG done showed sinus rhythm with nonspecific T wave abnormalities in the inferior leads. There is no prior ECG for comparison. Patient denies chest pain. Denies palpitations. Noted with some shortness of breath on exertion. Troponin level is normal. Chest CT showed no evidence of PE. He has no prior cardiac history or workup. A cardiology consultation was requested for abnormal ECG finding. Past History Past Medical History: No medical history, other (Not on any medications) Past Surgical History: Other (Inner ear surgery when he was an infant. Keloid earlobe surgery) Social history: denies: smoking, alcohol abuse, prescription drug abuse Family history: hypertension Medications and Allergies Allergies Allergy/AdvReac Type Severity Reaction Status Date / Time No Known Allergies Allergy Verified 06/27/17 06:34 Home Medications Medication Instructions Recorded Confirmed Last Taken Type No Known Home Medications [No 06/22/17 06/04/21 Unknown History Reported Home Medications] Active Meds: Active Medications Acetaminophen (Acetaminophen 325 Mg Tab) 650 mg PO Q4H PRN PRN Reason: Pain, Mild (1-3) Last Admin: 06/02/21 05:48 Dose: 650 mg Documented by: Dexamethasone (Dexamethasone 4 Mg/Ml Vial) 6 mg IV DAILY CARLO Stop: 06/11/21 10:01 Sodium Chloride (Nacl 0.9% 1000 Ml) 1,000 mls @ 100 mls/hr IV DIRECT CARLO Last Admin: 06/01/21 18:00 Dose: 100 mls/hr Documented by: Ketorolac Tromethamine (Ketorolac 30 Mg/1 Ml Inj) 15 mg IV Q6H PRN PRN Reason: Pain, Mild (1-3) Stop: 06/04/21 18:47 Melatonin (Melatonin 5 Mg Tab) 10 mg PO QHS PRN PRN Reason: Sleep Last Admin: 06/01/21 21:58 Dose: 10 mg Documented by: Morphine Sulfate (Morphine 2 Mg/1 Ml Inj) 2 mg IV ONCE PRN PRN Reason: Chest Pain Ondansetron HCl (Ondansetron 4 Mg/2 Ml Inj) 4 mg IV Q4H PRN PRN Reason: Nausea And Vomiting Pantoprazole Sodium (Pantoprazole 40 Mg Tab) 40 mg PO QDAC [facility] Last Admin: 06/02/21 07:43 Dose: 40 mg Documented by: Review of Systems Cardiovascular: no chest pain Physical Examination Vital Signs Temp Pulse Resp BP Pulse Ox 98.4 F 114 H 18 111/65 97 05/30/21 03:04 05/30/21 03:04 05/30/21 03:04 05/30/21 03:04 05/30/21 03:04 Narrative exam: Deferred due to isolation protocol. General appearance: no acute distress Results 05/30/21 03:06 05/30/21 10:11 Cardiac Enzymes 06/01/21 Range/Units 18:15 Lactate Dehydrogenase 310 H (91-180) units/L Assessment and Plan COVID [address] showed no evidence of PE Abnormal EKG pt denies chest pain Will order an echocardiogram for LVEF assessment. <CHRISTI VELASQUEZ Last Filed: 06/04/21 11:40> History of Present Illness History of present illness: I SAW THIS PT & AGREE WITH THE Dx & Tx PLAN. Medications and Allergies Active Meds: Active Medications Acetaminophen (Acetaminophen 325 Mg Tab) 650 mg PO Q4H PRN PRN Reason: Pain, Mild (1-3) Last Admin: 06/02/21 05:48 Dose: 650 mg Documented by: Sodium Chloride (Nacl 0.9% 1000 Ml) 1,000 mls @ 100 mls/hr IV DIRECT [facility] Last Admin: 06/04/21 04:00 Dose: 100 mls/hr Documented by: Ketorolac Tromethamine (Ketorolac 30 Mg/1 Ml Inj) 15 mg IV Q6H PRN PRN Reason: Pain, Mild (1-3) Stop: 06/04/21 18:47 Melatonin (Melatonin 5 Mg Tab) 10 mg PO QHS PRN PRN Reason: Sleep Last Admin: 06/01/21 21:58 Dose: 10 mg Documented by: Morphine Sulfate (Morphine 2 Mg/1 Ml Inj) 2 mg IV ONCE PRN PRN Reason: Chest Pain Ondansetron HCl (Ondansetron 4 Mg/2 Ml Inj) 4 mg IV Q4H PRN PRN Reason: Nausea And Vomiting Pantoprazole Sodium (Pantoprazole 40 Mg Tab) 40 mg PO QDAC [facility] Last Admin: 06/04/21 09:44 Dose: Not Given Documented by: Physical Examination Vital Signs Temp Pulse Resp BP Pulse Ox 98.4 F 114 H 18 111/65 97 05/30/21 03:04 05/30/21 03:04 05/30/21 03:04 05/30/21 03:04 05/30/21 03:04 Results 05/30/21 03:06 05/30/21 10:11
[2021-06-03] MEDS: PANTOPRAZOLE 40 MG TAB PO SCH (06:43)
--- NOTE | 2021-06-03 09:03 | Progress Note ---
<LETI COOK - Last Filed: 06/03/21 09:02> Assessment and Plan COVID [address] showed no evidence of PE Abnormal EKG pt denies chest pain Will order an echocardiogram for LVEF assessment. Subjective Date of service: 06/03/21 Interval history: No cardiac complaints. Currently he is sinus bradycardia, rate ranging low 50's on telemetry. Objective Vital Signs Temp Pulse Resp BP Pulse Ox 06/03/21 08:13 20 100 06/03/21 05:16 98.6 F 52 L 18 121/75 100 06/02/21 21:46 97.9 F 57 L 18 112/52 100 06/02/21 16:08 97.6 F 56 L 18 131/72 100 06/02/21 11:34 98.3 F 66 20 115/65 98 06/02/21 10:00 20 95 - Physical Examination Narrative exam: Deferred due to isolation protocol. General: No Apparent Distress Cardiac: Positive: Bradycardia <CHRISTI VELASQUEZ - Last Filed: 06/04/21 11:31> Subjective Interval history: I SAW THIS PT & AGREE WITH THE Dx & Tx PLAN. Objective Vital Signs Temp Pulse Resp BP Pulse Ox 06/04/21 10:49 94 06/04/21 04:13 97.7 F 52 L 20 118/66 98 06/03/21 22:20 97.9 F 59 L 20 138/76 99 06/03/21 15:58 97.5 F L 61 18 121/66 97 06/03/21 11:33 97.2 F L 57 L 18 110/68 98
[2021-06-03] MEDS: dexAMETHasone 4 MG/ML VIAL IV SCH (09:18)
[2021-06-03] MEDS: SODIUM CHLORIDE 0.9% 1000 ML 1,000 ML IV SCH ×2 (09:26→17:21)
--- NOTE | 2021-06-03 14:40 | Progress Note ---
Assessment and Plan Cultures: Blood culture no growth Urine culture no growth COVID PCR: positive A/P: 20 yo M PMHx none presents with COVID. #COVID-19 pneumonia: without hypoxia. No need for therapy at the present time. #Pyuria: mild, no dysuria. Cultures negative. No need for antibiotics. Recs: -No need for steroids or remdesivir -No need for antibiotics -Anticoagulation per hospital protocol. Thank you for the consult, we will sign off. Please call with questions. Yazmin Barrera MD [facility] O: [phone] F: [phone] Subjective Date of service: 06/03/21 Interval history: Afebrile over the last 24 hours, cultures remain negative. Imaging personally reviewed: TTE no evidence of vegetations. Objective - Exam Narrative Exam: Physical exam deferred to reduce risk of transmission of COVID-19. Please refer to primary team's note. - Constitutional Vitals: Vital Signs Temp Pulse Resp BP Pulse Ox 98.6 F 52 L 20 121/75 100 06/03/21 05:16 06/03/21 05:16 06/03/21 08:13 06/03/21 05:16 06/03/21 08:13 Temperature -Last 24 Hours Temperature 98.6 F Temperature 97.9 F Temperature 97.6 F - Labs CBC & Chem 7: 05/30/21 03:06 05/30/21 10:11
--- NOTE | 2021-06-03 18:53 | Progress Note ---
Assessment and Plan Assessment and plan: -- COVID-19 infection Current Visit: Yes Status: Acute Contact and droplet isolation Tam PCR test is positive Patient on room air O2 sats> 96 No indication for steroid/remdesivir Home O2 evaluation Inflammatory markers, Proning --Abnormal EKG/nonspecific ST-T changes in inferior leads; Current Visit: Yes Status: Acute Patient reports that last night when he went to the bathroom he had a little bit of chest pain which lasted for few seconds Associated with shortness of breath, after receiving oxygen 2 to 3 L patient felt better He reports that he had 4-5 episodes during the whole day Denies chest pain now -- Febrile illness, acute Current Visit: Yes Status: Acute Due to COVID-19, afebrile now Possible UTI, possible pneumonia Continue antibiotics Follow cultures --pneumonia/atypical Current Visit: Yes Status: Acute Empiric antibiotics Rocephin and Zithromax Cultures, negative to date Procalcitonin normal, DC antibiotics --Urinary tract infection/on UA Current Visit: Yes Status: Acute Present on admission, on empiric Rocephin Urine cultures negative more than 48 hours DC antibiotic -- Hyponatremia Current Visit: Yes Status: Acute Mild hyponatremia, treat with gentle hydration with normal saline Closely monitor electrolytes --DVT prophylaxis Current Visit: Yes Status: Acute Subcu Lovenox Will monitor monitor closely and adjust management as needed plan of care will be discussed with the patient and his nurse Follow ID evaluation recommendation Possible discharge 1 to 2 days if stable 06/01/2021 I spoke with patient's grandmother at the bedside over the phone and discussed patient's condition, tests and reports Treatment plan, she had some questions answered all of them 06/02/2021; Patient has nonspecific ST-T changes and chest pain Follow cardiology recommendations, May discharge home if stable and cleared by cardiology ID cleared for discharge, 06/03/2021: Patient reports generally doing better. He is now on room air. However experiences dyspnea on exertion. He continues to have malaise with poor appetite. Plan is to discharge home after ambulatory oxygen test. Discussed with the patient and the nursing staff. History Interval history: Patient reports generally doing better. He is off oxygen on room air currently. However he does experience dyspnea on exertion. Anorexic. Feels sluggish. Hospitalist Physical - Constitutional Vitals: Temp Pulse Resp BP Pulse Ox 98.6 F 52 L 20 121/75 100 06/03/21 05:16 06/03/21 05:16 06/03/21 08:13 06/03/21 05:16 06/03/21 08:13 General appearance: Present: no acute distress, well-nourished - EENT Eyes: Present: PERRL - Neck Neck: Present: supple - Respiratory Respiratory effort: normal Respiratory: bilateral: diminished - Cardiovascular Rhythm: regular - Extremities Extremities: No edema Peripheral Pulses: within normal limits - Abdominal General gastrointestinal: soft, non-tender, non-distended - Integumentary Integumentary: Absent: rash - Psychiatric Psychiatric: appropriate mood/affect - Neurologic Neurologic: moves all extremities HEART Score - HEART Score Troponin: Troponin T < 0.010 ng/mL (0.00-0.029) 05/30/21 18:42 Results - Labs CBC & Chem 7: 06/04/21 14:20 06/04/21 14:20 Labs: Laboratory Last Values WBC 4.6 K/mm3 (4.5-11.0) 05/30/21 03:06 RBC 4.83 M/mm3 (3.65-5.03) 05/30/21 03:06 Hgb 14.9 gm/dl (11.8-15.2) 05/30/21 03:06 Hct 43.1 % (35.5-45.6) 05/30/21 03:06 MCV 89 fl (84-94) 05/30/21 03:06 MCH 31 pg (28-32) 05/30/21 03:06 MCHC 35 % (32-34) H 05/30/21 03:06 RDW 12.9 % (13.2-15.2) L 05/30/21 03:06 Plt Count 174 K/mm3 (140-440) 05/30/21 03:06 Lymph % (Auto) 12.9 % (13.4-35.0) L 05/30/21 03:06 [place] % (Auto) 8.7 % (0.0-7.3) H 05/30/21 03:06 Eos % (Auto) 0.0 % (0.0-4.3) 05/30/21 03:06 Baso % (Auto) 0.1 % (0.0-1.8) 05/30/21 03:06 Lymph # (Auto) 0.6 K/mm3 (1.2-5.4) L 05/30/21 03:06 [place] # (Auto) 0.4 K/mm3 (0.0-0.8) 05/30/21 03:06 Eos # (Auto) 0.0 K/mm3 (0.0-0.4) 05/30/21 03:06 Baso # (Auto) 0.0 K/mm3 (0.0-0.1) 05/30/21 03:06 Seg Neutrophils % 78.3 % (40.0-70.0) H 05/30/21 03:06 Seg Neutrophils # 3.6 K/mm3 (1.8-7.7) 05/30/21 03:06 D-Dimer 416.61 ng/mlDDU (0-234) H 06/01/21 18:15 Sodium 134 mmol/L (137-145) L 05/30/21 03:06 Potassium 4.0 mmol/L (3.6-5.0) 05/30/21 03:06 Chloride 96.4 mmol/L (98-107) L 05/30/21 03:06 Carbon Dioxide 25 mmol/L (22-30) 05/30/21 03:06 Anion Gap 17 mmol/L 05/30/21 03:06 BUN 17 mg/dL (9-20) 05/30/21 03:06 Creatinine 1.1 mg/dL (0.8-1.3) 05/30/21 03:06 Estimated GFR > 60 ml/min 05/30/21 03:06 BUN/Creatinine Ratio 15 % 05/30/21 03:06 Glucose 128 mg/dL (75-100) H 05/30/21 10:11 Calcium 9.0 mg/dL (8.4-10.2) 05/30/21 03:06 Ferritin 322.1 ng/mL (30.0-300.0) H 06/01/21 18:15 Total Bilirubin 0.70 mg/dL (0.1-1.2) 05/30/21 03:06 AST 35 units/L (5-40) 05/30/21 03:06 ALT 13 units/L (7-56) 05/30/21 03:06 Alkaline Phosphatase 54 units/L (35-129) 05/30/21 03:06 Lactate Dehydrogenase 310 units/L (91-180) H 06/01/21 18:15 Troponin T < 0.010 ng/mL (0.00-0.029) 05/30/21 18:42 C-Reactive Protein 5.90 mg/dL (0.00-1.30) H 06/01/21 18:15 Total Protein 7.7 g/dL (6.3-8.2) 05/30/21 03:06 Albumin 4.1 g/dL (3.9-5) 05/30/21 03:06 Albumin/Globulin Ratio 1.1 % 05/30/21 03:06 Lipase 15 units/L (13-60) 05/30/21 07:50 Procalcitonin 0.12 ng/mL (<0.15) 05/30/21 10:11 Urine Color Yellow (Yellow) 05/30/21 05:18 Urine Turbidity Slightly-cloudy (Clear) 05/30/21 05:18 Urine pH 5.0 (5.0-7.0) 05/30/21 05:18 Ur Specific [place] 1.019 (1.003-1.030) 05/30/21 05:18 Urine Protein 100 mg/dl mg/dL (Negative) 05/30/21 05:18 Urine Glucose (UA) 50 mg/dL (Negative) 05/30/21 05:18 Urine Ketones Neg mg/dL (Negative) 05/30/21 05:18 Urine Blood Neg (Negative) 05/30/21 05:18 Urine Nitrite Neg (Negative) 05/30/21 05:18 Urine Bilirubin Neg (Negative) 05/30/21 05:18 Urine Urobilinogen < 2.0 mg/dL (<2.0) 05/30/21 05:18 Ur Leukocyte Esterase Neg (Negative) 05/30/21 05:18 Urine WBC (Auto) 18.0 /HPF (0.0-6.0) H 05/30/21 05:18 Urine RBC (Auto) 2.0 /HPF (0.0-6.0) 05/30/21 05:18 U Epithel Cells (Auto) 1.0 /HPF (0-13.0) 05/30/21 05:18 Urine Bacteria (Auto) 1+ /HPF (Negative) 05/30/21 05:18 Urine Mucus Few /HPF 05/30/21 05:18 Urine Opiates Screen Presumptive negative 05/30/21 Unknown Urine Methadone Screen Presumptive negative 05/30/21 Unknown Ur Barbiturates Screen Presumptive negative 05/30/21 Unknown Ur Phencyclidine Scrn Presumptive negative 05/30/21 Unknown Ur Amphetamines Screen Presumptive negative 05/30/21 Unknown U Benzodiazepines Scrn Presumptive negative 05/30/21 Unknown Urine Cocaine Screen Presumptive negative 05/30/21 Unknown U Marijuana (THC) Screen Presumptive negative 05/30/21 Unknown Drugs of Abuse Note Disclamer 05/30/21 Unknown Coronavirus (PCR) Positive (Negative) A 05/31/21 09:00 Microbiology: Microbiology 05/30/21 10:11 Peripheral/Venous Blood Culture - Preliminary NO GROWTH AFTER 4 DAYS 05/30/21 10:11 Peripheral/Venous Blood Culture - Preliminary NO GROWTH AFTER 4 DAYS [place]za/IV: Voiding Method Urinal Active Medications - Current Medications Current Medications: Generic Name Dose Route Start Last Admin Trade Name Freq PRN Reason Stop Dose Admin Acetaminophen 650 mg 05/30/21 10:35 06/02/21 05:48 Acetaminophen 325 Mg Tab PO 650 mg Q4H PRN Administration Pain, Mild (1-3) Sodium Chloride 1,000 mls @ 100 mls/hr 05/30/21 18:30 06/03/21 17:21 Nacl 0.9% 1000 Ml IV 100 mls/hr DIRECT CARLO Administration Ketorolac Tromethamine 15 mg 05/30/21 18:48 Ketorolac 30 Mg/1 Ml Inj IV 06/04/21 18:47 Q6H PRN Pain, Mild (1-3) Melatonin 10 mg 05/30/21 18:47 06/01/21 21:58 Melatonin 5 Mg Tab PO 10 mg QHS PRN Administration Sleep Morphine Sulfate 2 mg 05/30/21 18:29 Morphine 2 Mg/1 Ml Inj IV ONCE PRN Chest Pain Ondansetron HCl 4 mg 05/30/21 10:37 Ondansetron 4 Mg/2 Ml Inj IV Q4H PRN Nausea And Vomiting Pantoprazole Sodium 40 mg 06/01/21 10:00 06/03/21 06:43 Pantoprazole 40 Mg Tab PO 40 mg QDAC CARLO Administration
[2021-06-04] MEDS: SODIUM CHLORIDE 0.9% 1000 ML 1,000 ML IV SCH (04:00)
[2021-06-04] MEDS: PANTOPRAZOLE 40 MG TAB PO SCH (09:44)
--- NOTE | 2021-06-04 10:07 | Progress Note ---
<LETI COOK - Last Filed: 06/04/21 10:01> Assessment and Plan COVID [address] showed no evidence of PE Abnormal EKG pt denies chest pain Echocardiogram normal LVEF 55-60%. As an outpatient, will recommend non-invasive cardiac workup once he has recovered from COVID 19 infection. Will follow intermittently. Subjective Date of service: 06/04/21 Interval history: No cardiac complaints. Objective Vital Signs Temp Pulse Resp BP Pulse Ox 06/04/21 04:13 97.7 F 52 L 20 118/66 98 06/03/21 22:20 97.9 F 59 L 20 138/76 99 06/03/21 15:58 97.5 F L 61 18 121/66 97 06/03/21 11:33 97.2 F L 57 L 18 110/68 98 - Physical Examination Narrative exam: Deferred due to isolation protocol. General: No Apparent Distress <CHRISTI VELASQUEZ - Last Filed: 06/04/21 11:22> Subjective Interval history: I SAW THIS PT & AGREE WITH THE Dx & Tx PLAN. Objective Vital Signs Temp Pulse Resp BP Pulse Ox 06/04/21 10:49 94 06/04/21 04:13 97.7 F 52 L 20 118/66 98 06/03/21 22:20 97.9 F 59 L 20 138/76 99 06/03/21 15:58 97.5 F L 61 18 121/66 97 06/03/21 11:33 97.2 F L 57 L 18 110/68 98
[2021-06-04] MEDS: ACETAMINOPHEN 325 MG TAB PO PRN (11:43)
[2021-06-04] MEDS ORDERED: dexAMETHasone 4 MG/ML VIAL IV SCH (12:00)
[2021-06-04] MEDS: CHOLECALCIFEROL (VIT D3) 1000 UNIT (25 mcg) TAB PO SCH (12:54)
[2021-06-04] MEDS: ASCORBIC ACID 500 MG TAB PO SCH (12:54)
[2021-06-04 14:42] LABS: Basophils % (Auto) 0.1 % (0.0-1.8); Eosinophils % (Auto) 0.1 % (0.0-4.3); Hematocrit 42.4 % (35.5-45.6); Hemoglobin 14.2 gm/dl (11.8-15.2); Lymphocytes # (Auto) 1.3 K/mm3 (1.2-5.4); Mean Corpuscular HGB Conc 33 % (32-34); Mean Corpuscular Volume 92 fl (84-94); Monocytes # (Auto) 0.8 K/mm3 (0.0-0.8); Monocytes % (Auto) 10.6 % (0.0-7.3); Platelet Count 335 K/mm3 (140-440); Red Blood Count 4.63 M/mm3 (3.65-5.03); Red Cell Distribution Width 13.2 % (13.2-15.2)
[2021-06-04 15:04] LABS: Alanine Aminotransferase 37 units/L (7-56); Albumin 3.2 g/dL (3.9-5); Blood Urea Nitrogen 14 mg/dL (9-20); Calcium 9.1 mg/dL (8.4-10.2); Hemolysis Index 11
[2021-06-04 15:12] LABS: BUN/Creatinine Ratio 23
--- NOTE | 2021-06-04 19:16 | Progress Note ---
Assessment and Plan Assessment and plan: -- COVID-19 infection Current Visit: Yes Status: Acute Contact and droplet isolation Tam PCR test is positive Patient on room air O2 sats> 96 No indication for steroid/remdesivir Home O2 evaluation Inflammatory markers, Proning --Abnormal EKG/nonspecific ST-T changes in inferior leads; Current Visit: Yes Status: Acute Patient reports that last night when he went to the bathroom he had a little bit of chest pain which lasted for few seconds Associated with shortness of breath, after receiving oxygen 2 to 3 L patient felt better He reports that he had 4-5 episodes during the whole day Denies chest pain now -- Febrile illness, acute Current Visit: Yes Status: Acute Due to COVID-19, afebrile now Possible UTI, possible pneumonia Continue antibiotics Follow cultures --pneumonia/atypical Current Visit: Yes Status: Acute Empiric antibiotics Rocephin and Zithromax Cultures, negative to date Procalcitonin normal, DC antibiotics --Urinary tract infection/on UA Current Visit: Yes Status: Acute Present on admission, on empiric Rocephin Urine cultures negative more than 48 hours DC antibiotic -- Hyponatremia Current Visit: Yes Status: Acute Mild hyponatremia, treat with gentle hydration with normal saline Closely monitor electrolytes --DVT prophylaxis Current Visit: Yes Status: Acute Subcu Lovenox Will monitor monitor closely and adjust management as needed plan of care will be discussed with the patient and his nurse Follow ID evaluation recommendation Possible discharge 1 to 2 days if stable 06/01/2021 I spoke with patient's grandmother at the bedside over the phone and discussed patient's condition, tests and reports Treatment plan, she had some questions answered all of them 06/02/2021; Patient has nonspecific ST-T changes and chest pain Follow cardiology recommendations, May discharge home if stable and cleared by cardiology ID cleared for discharge, 06/03/2021: Patient reports generally doing better. He is now on room air. However experiences dyspnea on exertion. He continues to have malaise with poor appetite. Plan is to discharge home after ambulatory oxygen test. Discussed with the patient and the nursing staff. 06/04/2021 Patient became very dizzy/lightheaded with O2 sats dropping into 87% on ambulation. Patient states that he does not feel well. Discharge deferred. Remains anorexic with malaise. Resume O2 2 L and Decadron. Okay for discharge on 2 L of home O2. Needs to complete 10-day course of Decadron. Discussed with the case management with regard to arranging for home O2 but patient has no health insurance. History Interval history: Patient became very dizzy/lightheaded with O2 sats dropping into 87% on ambulation. Patient states that he does not feel well. Discharge deferred. Remains anorexic with malaise. Hospitalist Physical - Constitutional Vitals: Temp Pulse Resp BP Pulse Ox 97.7 F 56 L 18 108/53 98 06/04/21 16:14 06/04/21 16:14 06/04/21 16:14 06/04/21 16:14 06/04/21 16:14 General appearance: Present: no acute distress, well-nourished, other (Looks somewhat ill today.) - EENT Eyes: Present: PERRL ENT: clear oral mucosa - Neck Neck: Present: supple. Absent: masses or JVD - Cardiovascular Rhythm: regular - Extremities Extremities: No edema Peripheral Pulses: within normal limits - Abdominal General gastrointestinal: soft, non-tender, non-distended - Integumentary Integumentary: Absent: rash - Psychiatric Psychiatric: appropriate mood/affect - Neurologic Neurologic: moves all extremities HEART Score - HEART Score Troponin: Troponin T < 0.010 ng/mL (0.00-0.029) 05/30/21 18:42 Results - Labs CBC & Chem 7: 06/04/21 14:20 06/04/21 14:20 Labs: Laboratory Last Values WBC 7.1 K/mm3 (4.5-11.0) 06/04/21 14:20 RBC 4.63 M/mm3 (3.65-5.03) 06/04/21 14:20 Hgb 14.2 gm/dl (11.8-15.2) 06/04/21 14:20 Hct 42.4 % (35.5-45.6) 06/04/21 14:20 MCV 92 fl (84-94) 06/04/21 14:20 MCH 31 pg (28-32) 06/04/21 14:20 MCHC 33 % (32-34) 06/04/21 14:20 RDW 13.2 % (13.2-15.2) 06/04/21 14:20 Plt Count 335 K/mm3 (140-440) 06/04/21 14:20 Lymph % (Auto) 19.0 % (13.4-35.0) 06/04/21 14:20 [place] % (Auto) 10.6 % (0.0-7.3) H 06/04/21 14:20 Eos % (Auto) 0.1 % (0.0-4.3) 06/04/21 14:20 Baso % (Auto) 0.1 % (0.0-1.8) 06/04/21 14:20 Lymph # (Auto) 1.3 K/mm3 (1.2-5.4) 06/04/21 14:20 [place] # (Auto) 0.8 K/mm3 (0.0-0.8) 06/04/21 14:20 Eos # (Auto) 0.0 K/mm3 (0.0-0.4) 06/04/21 14:20 Baso # (Auto) 0.0 K/mm3 (0.0-0.1) 06/04/21 14:20 Seg Neutrophils % 70.2 % (40.0-70.0) H 06/04/21 14:20 Seg Neutrophils # 5.0 K/mm3 (1.8-7.7) 06/04/21 14:20 D-Dimer 416.61 ng/mlDDU (0-234) H 06/01/21 18:15 Sodium 141 mmol/L (137-145) 06/04/21 14:20 Potassium 4.0 mmol/L (3.6-5.0) 06/04/21 14:20 Chloride 108.0 mmol/L (98-107) H 06/04/21 14:20 Carbon Dioxide 26 mmol/L (22-30) 06/04/21 14:20 Anion Gap 11 mmol/L 06/04/21 14:20 BUN 14 mg/dL (9-20) 06/04/21 14:20 Creatinine 0.6 mg/dL (0.8-1.3) L 06/04/21 14:20 Estimated GFR > 60 ml/min 06/04/21 14:20 BUN/Creatinine Ratio 23 % 06/04/21 14:20 Glucose 128 mg/dL (75-100) H 06/04/21 14:20 Calcium 9.1 mg/dL (8.4-10.2) 06/04/21 14:20 Ferritin 322.1 ng/mL (30.0-300.0) H 06/01/21 18:15 Total Bilirubin 0.40 mg/dL (0.1-1.2) 06/04/21 14:20 AST 26 units/L (5-40) 06/04/21 14:20 ALT 37 units/L (7-56) 06/04/21 14:20 Alkaline Phosphatase 40 units/L (35-129) 06/04/21 14:20 Lactate Dehydrogenase 221 units/L (91-180) H 06/04/21 14:20 Troponin T < 0.010 ng/mL (0.00-0.029) 05/30/21 18:42 C-Reactive Protein 1.40 mg/dL (0.00-1.30) H 06/04/21 14:20 Total Protein 6.5 g/dL (6.3-8.2) 06/04/21 14:20 Albumin 3.2 g/dL (3.9-5) L 06/04/21 14:20 Albumin/Globulin Ratio 1.0 % 06/04/21 14:20 Lipase 15 units/L (13-60) 05/30/21 07:50 Procalcitonin 0.12 ng/mL (<0.15) 05/30/21 10:11 Urine Color Yellow (Yellow) 05/30/21 05:18 Urine Turbidity Slightly-cloudy (Clear) 05/30/21 05:18 Urine pH 5.0 (5.0-7.0) 05/30/21 05:18 Ur Specific [place] 1.019 (1.003-1.030) 05/30/21 05:18 Urine Protein 100 mg/dl mg/dL (Negative) 05/30/21 05:18 Urine Glucose (UA) 50 mg/dL (Negative) 05/30/21 05:18 Urine Ketones Neg mg/dL (Negative) 05/30/21 05:18 Urine Blood Neg (Negative) 05/30/21 05:18 Urine Nitrite Neg (Negative) 05/30/21 05:18 Urine Bilirubin Neg (Negative) 05/30/21 05:18 Urine Urobilinogen < 2.0 mg/dL (<2.0) 05/30/21 05:18 Ur Leukocyte Esterase Neg (Negative) 05/30/21 05:18 Urine WBC (Auto) 18.0 /HPF (0.0-6.0) H 05/30/21 05:18 Urine RBC (Auto) 2.0 /HPF (0.0-6.0) 05/30/21 05:18 U Epithel Cells (Auto) 1.0 /HPF (0-13.0) 05/30/21 05:18 Urine Bacteria (Auto) 1+ /HPF (Negative) 05/30/21 05:18 Urine Mucus Few /HPF 05/30/21 05:18 Urine Opiates Screen Presumptive negative 05/30/21 Unknown Urine Methadone Screen Presumptive negative 05/30/21 Unknown Ur Barbiturates Screen Presumptive negative 05/30/21 Unknown Ur Phencyclidine Scrn Presumptive negative 05/30/21 Unknown Ur Amphetamines Screen Presumptive negative 05/30/21 Unknown U Benzodiazepines Scrn Presumptive negative 05/30/21 Unknown Urine Cocaine Screen Presumptive negative 05/30/21 Unknown U Marijuana (THC) Screen Presumptive negative 05/30/21 Unknown Drugs of Abuse Note Disclamer 05/30/21 Unknown Coronavirus (PCR) Positive (Negative) A 05/31/21 09:00 Microbiology: Microbiology 05/30/21 10:11 Peripheral/Venous Blood Culture - Final NO GROWTH AFTER 5 DAYS 05/30/21 10:11 Peripheral/Venous Blood Culture - Final NO GROWTH AFTER 5 DAYS Desouza/IV: Voiding Method Toilet Active Medications - Current Medications Current Medications: Generic Name Dose Route Start Last Admin Trade Name Freq PRN Reason Stop Dose Admin Acetaminophen 650 mg 05/30/21 10:35 06/04/21 11:43 Acetaminophen 325 Mg Tab PO 650 mg Q4H PRN Administration Pain, Mild (1-3) Ascorbic Acid 500 mg 06/04/21 12:00 06/04/21 12:54 Ascorbic Acid 500 Mg Tab PO 500 mg BID CARLO Administration Cholecalciferol 1,000 unit 06/04/21 12:00 06/04/21 12:54 Cholecalciferol (Vit D3) 1000 Unit (25 Mcg) Tab PO 1,000 unit QDAY CARLO Administration Dexamethasone 6 mg 06/04/21 12:00 06/04/21 12:54 Dexamethasone 4 Mg/Ml Vial IV 06/11/21 12:00 6 mg DAILY CARLO Administration Sodium Chloride 1,000 mls @ 100 mls/hr 05/30/21 18:30 06/04/21 14:33 Nacl 0.9% 1000 Ml IV Infused DIRECT CARLO Infusion Melatonin 10 mg 05/30/21 18:47 06/01/21 21:58 Melatonin 5 Mg Tab PO 10 mg QHS PRN Administration Sleep Ondansetron HCl 4 mg 05/30/21 10:37 Ondansetron 4 Mg/2 Ml Inj IV Q4H PRN Nausea And Vomiting Pantoprazole Sodium 40 mg 06/01/21 10:00 06/04/21 09:44 Pantoprazole 40 Mg Tab PO Not Given QDAC CARLO Zinc Sulfate 220 mg 06/04/21 22:00 Zinc Sulfate 220 Mg Cap PO BID CARLO
[2021-06-04 22:44] VITALS: BP 118/73
[2021-06-05] MEDS: ASCORBIC ACID 500 MG TAB PO SCH ×2 (00:10→09:04)
[2021-06-05] MEDS: ZINC SULFATE 220 MG CAP PO SCH ×2 (00:10→09:03)
[2021-06-05] MEDS: ACETAMINOPHEN 325 MG TAB PO PRN (09:03)
[2021-06-05] MEDS: PANTOPRAZOLE 40 MG TAB PO SCH (09:04)
[2021-06-05] MEDS: CHOLECALCIFEROL (VIT D3) 1000 UNIT (25 mcg) TAB PO SCH (09:04)
[2021-06-05] MEDS ORDERED: DEXAMETHASONE 4 MG TAB PO SCH (10:00)
[2021-06-05 10:47] LABS: C-Reactive Protein 0.9 mg/dL (0.00-1.30)
--- NOTE | 2021-06-05 11:58 | Discharge Summary ---
Providers - Providers Date of Admission: 05/30/21 16:02 Date of discharge: 06/05/21 Attending physician: MAGUE LANG 06/01/21 16:22 Consult to Physician [CONS] Routine Comment: Consulting Provider: ELSIE HERBERT Physician Instructions: Reason For Exam: COVID-19 infection 06/02/21 09:40 Consult to Physician [CONS] Routine Comment: Consulting Provider: CHRISTI VELASQUEZ Physician Instructions: Reason For Exam: Abnormal EKG/ST-T changes in inferior leads/Covid [facility] Reason for admission: Fever nausea vomiting and abdominal pain/COVID-19, Condition: Stable Pertinent studies: Chest x-ray CTA chest Echocardiogram Hospital course: Nausea vomiting ,abdominal Pain, headache and fever last 4 days Patient is not vaccinated History of present illness: 20-year-old male patient with no significant past medical history, not on any medications, presented to the emergency room with nausea vomiting and upper respiratory symptoms for the last 1 week. Patient mainly has flulike symptoms, patient is unvaccinated for COVID-19 Patient also gives history of intermittent fevers for the last 1 week, occasional cough productive headache and dizziness and generalized body aches Initial work-up in the ED findings consistent with right upper lobe pneumonia on chest x-ray, febrile with T-max of 102 F this morning And urinalysis consistent with UTI. Patient denies any sick contacts with COVID-19 patients Patient also complains of mild intermittent chest pain with nausea Denies any alcohol or recreational drug intake Discharge diagnosis; -- COVID-19 infection Current Visit: Yes Status: Acute Contact and droplet isolation Tam PCR test is positive Patient on room air O2 sats> 96 No indication for steroid/remdesivir Home O2 evaluation Inflammatory markers, Proning --Abnormal EKG/nonspecific ST-T changes in inferior leads; Current Visit: Yes Status: Acute Patient reports that last night when he went to the bathroom he had a little bit of chest pain which lasted for few seconds Associated with shortness of breath, after receiving oxygen 2 to 3 L patient felt better He reports that he had 4-5 episodes during the whole day Denies chest pain now -- Febrile illness, acute Current Visit: Yes Status: Acute Due to COVID-19, afebrile now Possible UTI, possible pneumonia Continue antibiotics Follow cultures --pneumonia/atypical Current Visit: Yes Status: Acute Empiric antibiotics Rocephin and Zithromax Cultures, negative to date Procalcitonin normal, DC antibiotics --Urinary tract infection/on UA Current Visit: Yes Status: Acute Present on admission, on empiric Rocephin Urine cultures negative more than 48 hours DC antibiotic -- Hyponatremia Current Visit: Yes Status: Acute Mild hyponatremia, treat with gentle hydration with normal saline Closely monitor electrolytes Disposition: 01 HOME / SELF CARE / HOMELESS Final Discharge Diagnosis (Prints w/discharge instructions): COVID-19 infection. Abnormal EKG/no symptoms. Normal echocardiogram. Fever/resolved. Atypical pneumonia/. COVID-19 positive test. Possible urinary tract infection/cultures negative. Hyponatremia/resolved Time spent for discharge: 35 min Core Measure Documentation - Palliative Care Palliative Care/ Comfort Measures: Not Applicable - Core Measures Any of the following diagnoses?: none Exam - Constitutional Vitals: Temp Pulse Resp BP Pulse Ox 98.1 F 60 18 118/73 97 06/04/21 21:19 06/04/21 21:19 06/04/21 21:19 06/04/21 21:19 06/04/21 21:19 General appearance: Present: no acute distress, well-nourished - EENT Eyes: Present: PERRL, EOM intact - Neck Neck: Present: supple, normal ROM - Respiratory Respiratory effort: normal Respiratory: bilateral: diminished, rhonchi, negative: rales, wheezing - Cardiovascular Rhythm: regular Heart Sounds: Present: S1 & S2 - Extremities Extremities: no ischemia, No edema - Abdominal General gastrointestinal: Present: soft, non-tender, non-distended, normal bowel sounds - Integumentary Integumentary: Present: clear, warm - Musculoskeletal Musculoskeletal: strength equal bilaterally, generalized weakness - Psychiatric Psychiatric: appropriate mood/affect, cooperative - Neurologic Neurologic: CNII-XII intact, moves all extremities Plan Activity: advance as tolerated Diet: regular Additional Instructions: Advised to follow COVID-19 precautions and protocols as instructed by discharge nurse. Advised to self quarantine/masking/social distancing/handwashing and other COVID-19 guidelines. Symptoms contact MD or go to the emergency room as needed. 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 Ascorbic Acid [Vitamin C] 500 mg PO BID #30 tablet Cholecalciferol Vit D3 [Vitamin D3 1,000 UNIT TAB] 1,000 unit PO QDAY #15 tablet Zinc Sulfate 220 mg PO BID #30 capsule
== END 2021-06-05 13:30 | disposition home or self-care (01) | DRG 871 ==
LOC: ED 02:14 → 3A 16:02
PROVIDERS: ADMIT Internal Medicine; ATTEND Internal Medicine
DX: A41.9 Sepsis, unspecified organism (principal); U07.1 COVID-19; J96.01 Acute respiratory failure with hypoxia; J12.82 Pneumonia due to coronavirus disease 2019; N39.0 Urinary tract infection, site not specified; E87.1 Hypo-osmolality and hyponatremia; Z82.49 Family history of ischemic heart disease and other diseases of the circulatory system
CPT/HCPCS: 36415; 71046; 71275; 80053; 80307; 81001; 82728; 82947; 83615; 83690; 84145; 84484; 85025; 85379; 86140; 87040; 87086; 93005; 93306; 94760; G0378; C9113; J0456; J0696; J1100; J1885; J7030; J8540; Q9967; U0003